=== PATIENT | female | born 1945 | race Caucasian/White ===

== ENCOUNTER 2016-05-15 08:00 | Outpatient (CLI) | payer MEDICARE, OTHER | END 2016-05-15 08:01 | disposition home or self-care (01) | DX: I10 Essential (primary) hypertension (principal) ==

== ENCOUNTER 2016-05-29 08:00 | Outpatient (CLI) | payer MEDICARE, OTHER | END 2016-05-29 08:01 | disposition home or self-care (01) | DX: R19.06 Epigastric swelling, mass or lump (principal) ==

== ENCOUNTER 2016-06-06 09:39 | Outpatient (CLI) | payer MEDICARE, OTHER | END 2016-06-06 09:40 | disposition home or self-care (01) | DX: R19.4 Change in bowel habit (principal); R10.13 Epigastric pain; R10.31 Right lower quadrant pain; R10.11 Right upper quadrant pain; R19.06 Epigastric swelling, mass or lump; K76.89 Other specified diseases of liver ==

== ENCOUNTER 2016-10-17 10:27 | Outpatient (CLI) | payer MEDICARE, OTHER ==
[2016-10-17 12:55] LABS: CALCIUM 9.4 mg/dL (8.5-10.3); CREATININE 0.8 mg/dL (0.4-1.0); POTASSIUM 4.2 mmol/L (3.5-5.0)
== END 2016-10-17 10:28 | disposition home or self-care (01) ==
LOC: LAB.WCP 10:27
PROVIDERS: ATTEND Physician Assistant Medical
DX: R51 Headache (principal)
CPT/HCPCS: 36415; 80048

== ENCOUNTER 2017-02-26 20:31 | Outpatient (CLI) | payer MEDICARE, OTHER ==
[2017-02-26 19:20] LABS: BASOPHILS # (AUTO) 0.1 10^3/uL (0.0-0.1); BASOPHILS % (AUTO) 2.1 %; EOSINOPHILS # (AUTO) 0.1 10^3/uL (0.0-0.7); EOSINOPHILS % (AUTO) 1.7 %; HCT - HEMATOCRIT 42.6 % (37.0-47.0); HGB - HEMOGLOBIN 14.2 g/dL (12.0-16.0); LYMPHOCYTES # (AUTO) 0.9 10^3/uL (1.5-3.5); LYMPHOCYTES % (AUTO) 20.7 %; MEAN CORPUSCULAR HEMOGLOBIN 32.9 pg (27.0-31.0); MEAN CORPUSCULAR HGB CONC 33.3 g/dL (32.0-36.0); MEAN CORPUSCULAR VOLUME 98.8 fL (81.0-99.0); MONOCYTES # (AUTO) 0.4 10^3/uL (0.0-1.0); MONOCYTES % (AUTO) 8.4 %; NEUTROPHILS # (AUTO) 2.9 10^3/uL (1.5-6.6); NEUTROPHILS % (AUTO) 67.1 %; RED BLOOD COUNT 4.31 10^6/uL (4.20-5.40); RED CELL DISTRIBUTION WIDTH 13.4 % (12.0-15.0); UNCORRECTED WHITE BLOOD COUNT 4.3 x10^3/uL; WHITE BLOOD COUNT 4.3 x10^3/uL (4.8-10.8)
[2017-02-26 19:32] LABS: ALBUMIN/GLOBULIN RATIO 1.5 (1.0-2.2); BILIRUBIN,TOTAL 0.9 mg/dL (0.2-1.0); BUN - BLOOD UREA NITROGEN 16 mg/dL (6-20); CALCIUM 9.6 mg/dL (8.5-10.3); CARBON DIOXIDE - CO2 26 mmol/L (21-32); CHLORIDE 104 mmol/L (101-111); CREATININE 0.9 mg/dL (0.4-1.0); GFR - MDRD 62 (>89); GLUCOSE 87 mg/dL (70-100); SODIUM 139 mmol/L (135-145); TOTAL PROTEIN 6.9 g/dL (6.7-8.2)
[2017-02-26 19:46] LABS: THYROID STIMULATING HORMONE 1.89 uIU/mL (0.34-5.60)
[2017-02-26 19:56] LABS: FOLATE 15.9 ng/mL (5.90 - >24.8)
== END 2017-02-26 20:32 | disposition home or self-care (01) ==
LOC: LAB.WCP 20:31
PROVIDERS: ATTEND Physician Assistant Medical
DX: R51 Headache (principal); R41.3 Other amnesia; G43.709 Chronic migraine without aura, not intractable, without status migrainosus; R90.89 Other abnormal findings on diagnostic imaging of central nervous system; Z51.81 Encounter for therapeutic drug level monitoring; Z79.899 Other long term (current) drug therapy; R53.83 Other fatigue
CPT/HCPCS: 36415; 80053; 82607; 82746; 82747; 84443; 85025; 85651; 86617

== ENCOUNTER 2017-03-26 15:56 | Outpatient (CLI) | payer MEDICARE, OTHER ==
--- NOTE | 2017-03-29 15:57 | Mammography Report ---
DIGITAL SCREENING MAMMOGRAM: 03/26/2017 CLINICAL INDICATION: A 71-year-old with history of benign biopsy, for screening. COMPARISON: 10/2013, 04/2012. TECHNIQUE: Routine CC and MLO projections were obtained of the breasts. FINDINGS: The breasts again demonstrate heterogeneously dense fibroglandular parenchyma bilaterally. There is a shifting pattern of circumscribed nodules bilaterally, compatible with waxing and waning cysts. Coarse and punctate, typically benign calcifications are present. Postsurgical changes in the right breast are stable. No suspicious masses, clustered microcalcifications, or regions of microstrategy architect ural distortion are identified. IMPRESSION: BENIGN FINDINGS. RECOMMENDATION: ROUTINE ANNUAL SCREENING UNLESS OTHERWISE CLINICALLY INDICATED. BIRADS CATEGORY 2-BENIGN FINDINGS. STANDARD QUALIFYING STATEMENTS 1. This examination was reviewed with the aid of Computer-Aided Detection (CAD). 2. A negative or benign imaging report should not delay biopsy if clinically suspicious findings are present. Consider surgical consultation if warranted. More than 5% of cancers are not identified by i maging. 3. Dense breasts may obscure an underlying neoplasm. JOB #: [id number] EXT JOB #:[id number]
== END 2017-03-26 15:57 | disposition home or self-care (01) ==
LOC: DI 15:56
PROVIDERS: ATTEND Physician Assistant Medical
DX: Z12.31 Encounter for screening mammogram for malignant neoplasm of breast (principal)
CPT/HCPCS: 77067

== ENCOUNTER 2017-05-14 09:53 | Emergency (ER) | payer MEDICARE, OTHER ==
--- NOTE | 2017-05-14 11:04 | ED Physician Documentation ---
History of Present Illness - Stated complaint Stated Complaint: DIZZY, CP - Chief complaint Chief Complaint: Cardiac - History obtained from History obtained from: Patient - History of Present Illness Timing: How many weeks ago (1) - Additonal information Additional information: 72-year-old female has sharp pain in the back of her head when she turned her head to the right about 1 week ago she had dizziness associated with that episode and she has had episodic dizziness since then. She has pain at the base of her head associated with these episodes. She is developed some nausea twice she has not had any vomiting associated with this she does have positional dizziness. Review of Systems Constitutional: denies: Fever, Chills, Myalgias Eyes: denies: Decreased vision Ears: denies: Loss of hearing, Ear pain Nose: denies: Rhinorrhea / runny nose, Congestion Throat: denies: Sore throat Cardiac: denies: Chest pain / pressure, Palpitations Respiratory: denies: Dyspnea, Cough GI: reports: Nausea. denies: Abdominal Pain, Vomiting : denies: Dysuria, Frequency Skin: denies: Rash Musculoskeletal: reports: Neck pain. 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: Other HEENT: Cataracts, Detached retina repair, Tonsil/Adenoidectomy - Present Medications Home Medications: Ambulatory Orders Medication Instructions Recorded Confirmed Biotin 0 mg PO DAILY 11/18/13 05/14/17 Calcium & Magnesium Carbonate 1 each PO DAILY 11/18/13 05/14/17 [Antacid Gelatin Caplet] NIFEdipine [Procardia Xl] 30 mg PO DAILY 11/18/13 05/14/17 Temazepam 15 mg PO DAILY PRN 11/18/13 05/14/17 Montelukast [Singulair] 10 mg PO QPM 12/15/15 05/14/17 Multivitamin [Theragran] 1 each PO DAILY 12/15/15 05/14/17 Vitamin B Complex 1 each PO DAILY 12/15/15 05/14/17 Atenolol [Tenormin] 0 mg PO DAILY 01/02/18 01/02/18 Meclizine HCl [Bonine] 25 mg PO Q6HR PRN #20 tab.chew 05/14/17 - Allergies Allergies/Adverse Reactions: Allergies Allergy/AdvReac Type Severity Reaction Status Date / Time acetaminophen [From Vicodin] Allergy Rash Verified 05/14/17 10:08 benzonatate Allergy Rash Verified 05/14/17 10:08 codeine Allergy Nausea Verified 05/14/17 10:08 hydrocodone bitartrate * Allergy Rash Verified 05/14/17 10:08 [From Vicodin] iodine Allergy Rash Verified 05/14/17 10:08 mannitol [From Reclast] Allergy Cramps Verified 05/14/17 10:08 metronidazole Allergy Unknown Verified 05/14/17 10:08 oxycodone HCl * Allergy Rash Verified 05/14/17 10:08 [From Percocet] Penicillins Allergy Rash Verified 05/14/17 10:08 prednisone Allergy Unknown Verified 05/14/17 10:08 propoxyphene napsylate * Allergy Rash Verified 05/14/17 10:08 [From Darvocet-N] tramadol Allergy Rash Verified 05/14/17 10:08 wheat Allergy Respiratory Verified 05/14/17 10:08 zoledronic acid Allergy Cramps Verified 05/14/17 10:08 [From Reclast] cetirizine HCl * AdvReac Unknown Verified 05/14/17 10:08 [From Zyrtec] diphenhydramine HCl * AdvReac Unknown Verified 05/14/17 10:08 [From Benadryl] zolpidem tartrate * AdvReac Hallucinati Verified 05/14/17 10:08 [From Ambien] ons PD ED PE NORMAL - Vitals Vital signs reviewed: Yes (hypertensive ) - General General: Alert and oriented X 3, No acute distress, Well developed/nourished - HEENT HEENT: Atraumatic, PERRL, EOMI, Ears normal, Moist mucous membranes, Pharynx benign, Dentition benign - Neck Neck: Supple, no meningeal sign, No bony TTP - Cardiac Cardiac: RRR, No murmur - Respiratory Respiratory: No respiratory distress, Clear bilaterally - Abdomen Abdomen: Soft, Non tender - Back Back: No CVA TTP, No spinal TTP - Derm Derm: Normal color, Warm and dry, No rash - Extremities Extremities: No deformity, No edema - Neuro Neuro: Alert and oriented X 3, 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, No motor deficit, No sensory deficit, Normal speech Eye Opening: Spontaneous Motor: Obeys Commands Verbal: Oriented GCS Score: 15 - Psych Psych: Other (mood is withdrawn and the affect is flat ) Results - Vitals Vitals: Vital Signs - 24 hr 05/14/17 05/14/17 05/14/17 10:02 11:32 12:57 Temperature 36.4 C L 35.8 C L Heart Rate 73 62 58 L Respiratory 16 14 16 Rate Blood Pressure 144/100 H 151/94 H 143/91 H O2 Saturation 99 100 98 05/14/17 05/14/17 12:58 13:34 Temperature Heart Rate 58 L 64 Respiratory 12 19 Rate Blood Pressure 143/91 H 148/99 H O2 Saturation 99 99 Oxygen O2 Source Room air - Labs Labs: Laboratory Tests 05/14/17 05/14/17 05/14/17 10:35 10:35 10:35 WBC 4.1 L RBC 4.42 Hgb 14.5 Hct 42.3 MCV 95.8 MCH 32.9 H MCHC 34.4 RDW 13.1 Plt Count 245 MPV 7.4 L Neut # 2.9 Lymph # 0.7 L [place] # 0.3 Eos # 0.1 Baso # 0.0 Absolute Nucleated RBC 0.00 Nucleated RBC % 0.0 Sodium 139 Potassium 3.4 L Chloride 104 Carbon Dioxide 26 Anion Gap 9.0 BUN 18 Creatinine 0.8 Estimated GFR (MDRD) 71 L Glucose 90 Calcium 9.4 Total Bilirubin 0.9 AST 23 ALT 19 Alkaline Phosphatase 49 Troponin I < 0.04 Total Protein 7.1 Albumin 4.0 Globulin 3.1 Albumin/Globulin Ratio 1.3 Lipase 16 L Urine Color Urine Clarity Urine pH Ur Specific [place] Urine Protein Urine Glucose (UA) Urine Ketones Urine Occult Blood Urine Nitrite Urine Bilirubin Urine Urobilinogen Ur Leukocyte Esterase Ur Microscopic Review Urine Culture Comments 05/14/17 11:15 WBC RBC Hgb Hct MCV MCH MCHC RDW Plt Count MPV Neut # Lymph # [place] # Eos # Baso # Absolute Nucleated RBC Nucleated RBC % Sodium Potassium Chloride Carbon Dioxide Anion Gap BUN Creatinine Estimated GFR (MDRD) Glucose Calcium Total Bilirubin AST ALT Alkaline Phosphatase Troponin I Total Protein Albumin Globulin Albumin/Globulin Ratio Lipase Urine Color YELLOW Urine Clarity CLEAR Urine pH 7.0 Ur Specific [place] 1.015 Urine Protein NEGATIVE Urine Glucose (UA) NEGATIVE Urine Ketones NEGATIVE Urine Occult Blood NEGATIVE Urine Nitrite NEGATIVE Urine Bilirubin NEGATIVE Urine Urobilinogen 0.2 (NORMAL) Ur Leukocyte Esterase NEGATIVE Ur Microscopic Review NOT INDICATED Urine Culture Comments NOT INDICATED - Rads (name of study) CT head without Radiology: Prelim report reviewed (Impression: 1. Generalized age-related cortical atrophic changes without evidence of acute intracranial abnormality. 2. 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 She does improve with the use of meclizine and does not appear to have any specific side effects associated with this. She is well enough to be able to return home and she is sent home with patient instructions for modified Melissa maneuvers. Departure - Departure Disposition: 01 Home, Self Care Clinical Impression: Labyrinthitis, acute Qualifiers: Laterality: bilateral Qualified Code(s): H83.03 - Labyrinthitis, bilateral Condition: Stable Instructions: ED Labyrinthitis Follow-Up: Padma Soria PA-C [Primary Care Provider] - Prescriptions: Meclizine HCl [Bonine] 25 mg PO Q6HR PRN #20 tab.chew PRN Reason: Dizziness Discharge Date/Time: 05/14/17 13:46
[2017-05-14 11:12] LABS: BASOPHILS % (AUTO) 1.2 %; EOSINOPHILS # (AUTO) 0.1 10^3/uL (0.0-0.7); EOSINOPHILS % (AUTO) 2.3 %; HGB - HEMOGLOBIN 14.5 g/dL (12.0-16.0); LYMPHOCYTES # (AUTO) 0.7 10^3/uL (1.5-3.5); LYMPHOCYTES % (AUTO) 17.5 %; MEAN CORPUSCULAR HEMOGLOBIN 32.9 pg (27.0-31.0); MEAN CORPUSCULAR HGB CONC 34.4 g/dL (32.0-36.0); MEAN CORPUSCULAR VOLUME 95.8 fL (81.0-99.0); MEAN PLATELET VOLUME 7.4 fL (7.9-10.8); MONOCYTES # (AUTO) 0.3 10^3/uL (0.0-1.0); MONOCYTES % (AUTO) 8.3 %; NEUTROPHILS # (AUTO) 2.9 10^3/uL (1.5-6.6); NEUTROPHILS % (AUTO) 70.7 %; PLT - PLATELET COUNT 245 10^3/uL (130-450); RED BLOOD COUNT 4.42 10^6/uL (4.20-5.40); RED CELL DISTRIBUTION WIDTH 13.1 % (12.0-15.0); WHITE BLOOD COUNT 4.1 x10^3/uL (4.8-10.8)
[2017-05-14 11:22] LABS: ALBUMIN/GLOBULIN RATIO 1.3 (1.0-2.2); BILIRUBIN,TOTAL 0.9 mg/dL (0.2-1.0); CALCIUM 9.4 mg/dL (8.5-10.3); CREATININE 0.8 mg/dL (0.4-1.0); TOTAL PROTEIN 7.1 g/dL (6.7-8.2)
[2017-05-14 11:24] LABS: BILIRUBIN,URINE NEGATIVE (NEGATIVE); GLUCOSE, URINE (UA) NEGATIVE (NEGATIVE); KETONES,URINE (UA) NEGATIVE (NEGATIVE); LEUKOCYTE ESTERASE, URINE NEGATIVE (NEGATIVE); NITRITE,URINE NEGATIVE (NEGATIVE); OCCULT BLOOD,URINE NEGATIVE (NEGATIVE); PROTEIN,URINE NEGATIVE (NEGATIVE); UROBILINOGEN,URINE 0.2 (NORMAL) E.U./dL (NORMAL)
[2017-05-14 11:26] LABS: CLARITY,URINE CLEAR (CLEAR)
[2017-05-14] MEDS ORDERED: MECLIZINE 12.5 MG TABLET PO STA (11:29)
--- NOTE | 2017-05-14 11:49 | CT Report ---
EXAM: CT HEAD EXAM DATE: 05/14/2017 11:31 AM. CLINICAL HISTORY: Sharp occipital pain associated with dizziness . COMPARISON: Head CT 05/03/2014. TECHNIQUE: Multiaxial CT images were obtained from the foramen magnum to the vertex. Reformats: Coron al. IV contrast: None. In accordance with CT protocol optimization, one or more of the following dose reduction techniques w ere utilized for this exam: automated exposure control, adjustment of mA and/or KV based on patient s ize, or use of iterative reconstructive technique. FINDINGS: Parenchyma: No intraparenchymal hemorrhage. No evidence of mass, midline shift, or CT findings of acu te infarction. Bryan-white differentiation is distinct. Diffuse chronic microangiopathic white matter changes are evident. 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 Extraaxial Spaces: Normal for age. No subdural or epidural collections identified. Ventricles: The ventricles and cortical sulci are enlarged, consistent with age-related tissue loss. Sinuses and orbits: Imaged paranasal sinuses, orbits, and mastoids show no significant abnormality. Bones: No evidence of fracture or calvarial defect. Other: None. IMPRESSION: 1. Generalized age-related cortical atrophic changes without evidence of acute intracranial abnormali ty. 2. 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 [facility] Referring Provider Line: [phone] SITE ID: [id number]
[2017-05-14] MEDS ORDERED: POTASSIUM BICARB 25 MEQ TABLET PO STA (12:57)
[2017-05-14 13:35] VITALS: BP 148/99
== END 2017-05-14 13:46 | disposition home or self-care (01) ==
LOC: ED 09:53
DX: H83.03 Labyrinthitis, bilateral (principal); I10 Essential (primary) hypertension; J45.909 Unspecified asthma, uncomplicated
CPT/HCPCS: 36415; 70450; 80053; 81003; 83690; 84484; 85025; 93005; 99283; 99284; A9270; 81001; 87086

== ENCOUNTER 2017-10-16 08:00 | Outpatient (CLI) | payer MEDICARE, OTHER ==
[2017-10-16 12:45] LABS: BASOPHILS % (AUTO) 1.2 %; EOSINOPHILS # (AUTO) 0.2 10^3/uL (0.0-0.7); EOSINOPHILS % (AUTO) 4.5 %; HGB - HEMOGLOBIN 14.4 g/dL (12.0-16.0); LYMPHOCYTES # (AUTO) 0.8 10^3/uL (1.5-3.5); LYMPHOCYTES % (AUTO) 18.2 %; MEAN CORPUSCULAR HEMOGLOBIN 32.5 pg (27.0-31.0); MEAN CORPUSCULAR HGB CONC 33.9 g/dL (32.0-36.0); MEAN CORPUSCULAR VOLUME 95.8 fL (81.0-99.0); MEAN PLATELET VOLUME 7.7 fL (7.9-10.8); MONOCYTES # (AUTO) 0.4 10^3/uL (0.0-1.0); MONOCYTES % (AUTO) 9.5 %; NEUTROPHILS # (AUTO) 2.9 10^3/uL (1.5-6.6); NEUTROPHILS % (AUTO) 66.6 %; PLT - PLATELET COUNT 234 10^3/uL (130-450); RED BLOOD COUNT 4.44 10^6/uL (4.20-5.40); RED CELL DISTRIBUTION WIDTH 13.1 % (12.0-15.0); WHITE BLOOD COUNT 4.3 x10^3/uL (4.8-10.8)
[2017-10-16 12:49] LABS: HEMOGLOBIN A1C 0.55 g/dL; HEMOGLOBIN A1C % 5.3 % (4.6-6.2)
[2017-10-16 13:16] LABS: ALBUMIN 3.8 g/dL (3.2-5.5); ALBUMIN/GLOBULIN RATIO 1.2 (1.0-2.2); ALKALINE PHOSPHATASE 51 IU/L (42-121); ALT ALANINE AMINOTRANSFERASE 20 IU/L (10-60); AST ASPARTATE AMINOTRANSFERASE 21 IU/L (10-42); BILIRUBIN,TOTAL 0.7 mg/dL (0.2-1.0); BUN - BLOOD UREA NITROGEN 18 mg/dL (6-20); CALCIUM 8.9 mg/dL (8.5-10.3); CARBON DIOXIDE - CO2 26 mmol/L (21-32); CHLORIDE 104 mmol/L (101-111); CHOL/HDL RATIO 2.6 (<4.4); CHOLESTEROL 201 mg/dL; CREATININE 0.8 mg/dL (0.4-1.0); GFR - MDRD 71 (>89); GLUCOSE 98 mg/dL (70-100); HDL CHOLESTEROL 76 mg/dL; LDL CHOLESTEROL,CALCULATED 114 mg/dL; LDL/HDL RATIO 1.5 (<4.4); SODIUM 137 mmol/L (135-145); VLDL CHOLESTEROL 11 mg/dL
== END 2017-10-16 08:01 | disposition home or self-care (01) ==
LOC: LAB.WCP 08:00
PROVIDERS: ATTEND Physician Assistant
DX: I10 Essential (primary) hypertension (principal); Z83.3 Family history of diabetes mellitus; R53.83 Other fatigue
CPT/HCPCS: 36415; 80053; 80061; 83036; 83721; 84443; 85025

== ENCOUNTER 2017-11-12 09:56 | Outpatient (CLI) | payer MEDICARE, OTHER ==
--- NOTE | 2017-11-14 08:44 | DEXA Report ---
Procedure Date: 11/12/2017 Accession Number: [id number] / [id number] Procedure: DEX - Dexa Spine and/or Hip CPT Code: FULL RESULT: EXAM: Dexa Spine and/or Hip DATE: 11/12/2017 11:01 AM CLINICAL HISTORY: OSTEOPENIA TECHNIQUE: Dual energy x-ray absorptiometry (DXA) was performed on a Enevo System. Regions measured are the AP Spine, femoral neck, and if needed forearm. COMPARISON: None. In accordance with the International Society for Clinical Densitometry (ISCD) guidelines, data from previous exams may be reanalyzed using current recommendations and techniques. This is done to allow a more accurate basis for comparison with the current study. FINDINGS: The data for the lumbar spine is as follows: BMD (g/cm/cm) T-SCORE Z-SCORE REGION L1 1.137 0.1 1.7 L2 1.308 0.9 2.5 L3 L4 TOTAL 1.226 0.5 2.1 NOTE: All evaluable vertebrae are used for classification. L3 and L4 were excluded, due to previous spinal fusion hardware. The data for the hip is as follows: BMD (g/cm/cm) T-SCORE Z-SCORE REGION Neck 0.847 -1.4 0.3 TOTAL 0.897 -0.9 0.6 NOTE: The femoral neck or total proximal femur, whichever is lowest, is used for classification. IMPRESSION: THE WHO CLASSIFICATION BASED ON THE INTERNATIONAL REFERENCE STANDARD IS OSTEOPENIA. THE FRACTURE RISK IS INCREASED. RECOMMENDATION: Patients with diagnosis of osteoporosis or osteopenia should have regular bone mineral density assessment. For those eligible for Medicare, routine testing is allowed once every 2 years. Testing frequency can be increased for patients who have rapidly progressing disease or for those who are receiving medical therapy to restore bone mass. COMMENT: World Health Organization (WHO) definitions for osteoporosis and osteopenia: NORMAL BMD: T-score at -1.0 or higher, fracture risk is low OSTEOPENIA BMD: T-score between -1.0 and -2.5, fracture risk is increased. OSTEOPOROSIS BMD: T-score at -2.5 or lower, fracture risk is high. National Osteoporosis Foundation recommends: 1. Obtain adequate dietary calcium (at least 1200 mg per day) and vitamin D (400-800 international units per day). 2. Participate, as appropriate, in regular weightbearing and muscle-strengthening exercise. 3. Avoid tobacco use and reduce alcohol and caffeine intake. 4. For more detailed information see the website at www.NOF.org.
== END 2017-11-12 09:57 | disposition home or self-care (01) ==
LOC: DI 09:56
PROVIDERS: ATTEND Physician Assistant
DX: M85.89 Other specified disorders of bone density and structure, multiple sites (principal); M89.9 Disorder of bone, unspecified
CPT/HCPCS: 77080

== ENCOUNTER 2017-11-28 08:45 | Outpatient (CLI) | payer MEDICARE, OTHER ==
[2017-11-28] MEDS ORDERED: REGADENOSON 0.4 MG/5 ML SYRINGE IVP ONE (11:10)
[2017-11-28] MEDS: REGADENOSON 0.4 MG/5 ML SYRINGE IVP ONE (11:31)
--- NOTE | 2017-11-28 17:04 | CARDIAC PROCEDURE NOTE ---
DATE OF SERVICE: 11/28/2017 Provider: ISIAH Cisneros PCP: Maggy Mack PA-C PROCEDURE: Pharmacologic cardiac stress test. PROCEDURE SYMPTOMS: Shortness of breath, chest pain. CARDIAC RISK FACTORS: Age and hypertension. PREVIOUS CARDIAC PROCEDURES: ETT. CLINICAL HISTORY: A 72-year-old female without known coronary artery disease. INITIAL RESTING VITAL SIGNS: BP 128/80, heart rate 66, height 64-1/2 inches, weight 150 pounds, BMI 25.7. PROCEDURE AND FINDINGS: Patient identity and date verified. Consent signed. Pharmaceutical checked. Pharmacologic stress testing was performed with Lexiscan at a dose of 0.4 mg over 10 seconds. The heart rate increased to 101 beats per minute from the infusion. Blood pressure response was normal during the stress procedure. The patient developed moderate infusion -related symptoms, which included shortness of air and headache and resolved spontaneously. The resting electrocardiogram demonstrated normal sinus rhythm with an incomplete right bundle branch block with no ST or T-wave changes. Maximum ST segment depression with stress was 0. There was no ectopy. FINAL IMPRESSION 1. Negative electrocardiogram for ischemia in the setting of vasodilator stress. 2. Nondiagnostic stress test for angina. 3. No ectopy. 4. Await myocardial perfusion report. TD: 11/28/2017 13:30 MTDTony
[2017-11-28 17:28] VITALS: BP 128/80
--- NOTE | 2017-11-29 13:05 | Nuclear Medicine Report ---
Procedure Date: 11/28/2017 Accession Number: [id number] / [id number] Procedure: NM - Myocardial Perfusion STR/RST CPT Code: FULL RESULT: EXAM: SINGLE-ISOTOPE PHARMACOLOGICAL STRESS TEST WITH REGADENOSON. SINGLE-ISOTOPE AND ONE-DAY REST/STRESS MYOCARDIAL PERFUSION SCANS WITH TOMOGRAPHIC IMAGING, QUANTITATIVE ANALYSIS, WALL MOTION ANALYSIS AND CALCULATION OF EJECTION FRACTION. EXAM DATE: 11/28/2017 01:15 PM. CLINICAL HISTORY: SOB, CHEST PAIN. COMPARISON: None. TECHNIQUE: After the intravenous administration of 9.4 mCi of Tc-99m sestamibi, a rest myocardial perfusion scan was done with tomography. Motion correction was applied when appropriate. After an appropriate delay, pharmacological stress was performed with the infusion of 0.4 mg regadenoson per protocol. According to protocol, 39.3 mCi of Tc-99m sestamibi was injected for stress myocardial perfusion scan. Motion correction was applied when appropriate. Gated tomographic images were obtained for wall motion analysis and computation of left ventricular ejection fraction. FINDINGS: Perfusion images: Left ventricular chamber size is normal at rest and unchanged at stress. No convincing fixed perfusion deficits. No convincing reversible perfusion deficits. Gated images: No focal wall motion abnormality. The left ventricular ejection fraction is estimated at 83% (normal > 50%). IMPRESSION: 1. No convincing reversible perfusion deficits to indicate stress-induced ischemia. 2. No convincing fixed perfusion deficits. 3. Left ventricular ejection fraction of 83% (normal > 50%). 4. No focal wall motion abnormalities. [facility]
== END 2017-11-28 08:46 | disposition home or self-care (01) ==
LOC: DI 08:45
PROVIDERS: ATTEND Physician Assistant
DX: R06.02 Shortness of breath (principal); R07.89 Other chest pain; I10 Essential (primary) hypertension
CPT/HCPCS: 78452; 93017; A9500; J2785